=== PATIENT | female | born 1965 | race Caucasian/White ===

== ENCOUNTER 2022-03-28 10:24 | Emergency (ER) | payer BC, SELFPAY ==
[2022-03-28 10:57] VITALS: BP 136/70; PULSE 87; RESP 15; TEMP 36.6; O2SAT 98; BMI 26.5
--- NOTE | 2022-03-28 10:59 | DI.RAD.S_ITS ---
PROCEDURE: XR KNEE LT 3V INDICATIONS: knee pain 2 weeks TECHNIQUE: 3 views of the knee were acquired. COMPARISON: None. FINDINGS: Bones: No fractures or dislocations. No suspicious bony lesions. Mild arthritic narrowing within the medial and lateral compartment. Soft tissues: Moderate joint effusion. No suspicious soft tissue calcifications. IMPRESSION: Moderate effusion. Occult in Dictated by: Daisy Bird M.D. on 03/28/2022 at 11:40 Approved by: Daisy Bird M.D. on 03/28/2022 at 11:42
--- NOTE | 2022-03-28 12:12 | ED_ITS ---
HPI - Extremity Problem <Marcin Garrett PA-C - Last Filed: 03/28/22 13:50> General Chief complaint: Extremity Problem,Nontraumatic Stated complaint: Lt knee injury Time Seen by Provider: 03/28/22 12:06 Source: patient Mode of arrival: Ambulatory History of Present Illness HPI Narrative: Is a 56-year-old female presents to the emergency department complaining of left knee pain. Patient states that about a week ago she was kneeling on her left knee and after standing she noticed significant pain. Patient states that pain is primarily to the front of her knee or but with some pain posteriorly as well. She also states at times it feels numb when she keeps her legs in certain positions. Denies any significant trauma other than kneeling to the knee. Related Data Home Medications Medication Instructions Recorded Confirmed cetirizine 10 mg tablet 10 mg PO QDAY ##0 04/14/16 valacyclovir 500 mg tablet 500 mg PO TID ##0 04/14/16 Previous Rx's Medication Instructions Recorded codeine 10 mg-guaifenesin 100 mg/5 5 ml PO QHSP PRN #120 mL 04/14/16 mL oral liquid (Cheratussin AC) Allergies Allergy/AdvReac Type Severity Reaction Status Date / Time hydrocodone [From VICODIN] Allergy Unknown CLAMMY Verified 03/28/22 10:57 Review of Systems <Marcin Garrett PA-C - Last Filed: 03/28/22 13:50> Review of Systems Narrative: GENERAL: Denies chills, fatigue, malaise, fever, sweats. HEENT: Denies sinus pain, ear pain, sore throat, difficulty swallowing, dizziness. RESPIRATORY: Denies dyspnea, cough, wheezing, hemoptysis, sputum. CARDIOVASCULAR: Denies chest pain, palpitations, orthopnea, edema, GASTROINTESTINAL: Denies nausea, vomiting, abdominal pain, diarrhea, constipation, melena. : Denies dysuria, frequency, incontinence, hematuria, urinary retention. MUSCULOSKELETAL: Reports left knee pain SKIN: Denies rash, skin lesions, or other NEUROLOGIC: Denies weakness, headache, , change in speech, confusion, seizures, incoordination. PSYCHIATRIC: No concerning psychosocial issues. 12 point review of systems is negative except for those stated above Patient History <Marcin Garrett PA-C - Last Filed: 03/28/22 13:50> Social History Smoking Status: Unknown if ever smoked Smoking Status: Unknown if ever smoked alcohol intake frequency: holidays/special occasions only Substance Use Type: does not use Exam <Marcin Garrett PA-C - Last Filed: 03/28/22 13:50> Narrative Exam Narrative: GENERAL: Well-developed patient, in mild distress. HEAD: Atraumatic. Normocephalic. EYES: Pupils equal round and reactive. Extraocular motions intact. No scleral icterus. No injection or drainage. ENT: Nose without bleeding, purulent drainage. Throat without erythema, tonsillar hypertrophy or exudate. Airway patent. NECK: Trachea midline. Non tender CARDIOVASCULAR: Regular rate and rhythm without murmurs, gallops, or rubs. RESPIRATORY: Clear to auscultation. Breath sounds equal bilaterally. No wheezes, rales, or rhonchi. GASTROINTESTINAL: Abdomen soft, non-tender, nondistended. EXTREMITIES: Some pain with palpation to the anterior knee. No joint laxity felt. Negative anterior and posterior drawer test. Very mild pain with varus movement. Neurovascularly intact throughout. No palpable course of the posterior knee and no obvious deformities felt. BACK: Nontender without deformity or crepitance. No flank tenderness. NEURO: AOx3. SKIN: No rash or erythema of visible areas Initial Vital Signs Initial Vital Signs: Vital Signs Temperature 97.9 F 03/28/22 10:57 Pulse Rate 87 03/28/22 10:57 Respiratory Rate 15 03/28/22 10:57 Blood Pressure 136/70 03/28/22 10:57 Pulse Oximetry 98 03/28/22 10:57 Oxygen Delivery Method 03/28/22 10:57 <Yeny Cortez DO - Last Filed: 03/29/22 08:16> Initial Vital Signs Initial Vital Signs: Vital Signs Temperature 97.9 F 03/28/22 10:57 Pulse Rate 87 03/28/22 10:57 Respiratory Rate 15 03/28/22 10:57 Blood Pressure 136/70 03/28/22 10:57 Pulse Oximetry 98 03/28/22 10:57 Oxygen Delivery Method 03/28/22 10:57 Course <Marcin Garrett PA-C - Last Filed: 03/28/22 13:50> Orders Ordered: ED Orders 03/28/22 10:59 XR knee LT 3V Stat Vital Signs Vital signs: Vital Signs - 8 hr 03/28/22 10:57 Temperature 97.9 F Pulse Rate 87 Respiratory Rate 15 Blood Pressure 136/70 Pulse Oximetry 98 Oxygen Delivery Method Room Air <Yeny Cortez DO - Last Filed: 03/29/22 08:16> Orders Ordered: ED Orders 03/28/22 10:59 XR knee LT 3V Stat Vital Signs Vital signs: Vital Signs - 8 hr 03/28/22 10:57 Temperature 97.9 F Pulse Rate 87 Respiratory Rate 15 Blood Pressure 136/70 Pulse Oximetry 98 Oxygen Delivery Method Room Air MDM - Extremity (Nontraumatic) <Marcin Garrett PA-C - Last Filed: 03/28/22 13:50> Imaging Data Extremity x-ray #1: Radiologist's Impression: [address] [address] XRay Report Addendum Patient: Olivia Yanez MR#: [id number] : 1965 Acct:[id number] Age/Sex: 56 / F Date of Service: 03/28/22 Loc: ED Accession Number: [id number] ?? Procedure: XR knee LT 3V Ordering Provider: Yeny Cortez D.O. ADDENDUMThis report includes an Addendum and supersedes previous reports for this exam. ? ? ? PROCEDURE:? XR KNEE LT 3V ? INDICATIONS:? knee pain 2 weeks ? TECHNIQUE:? 3 views of the knee were acquired.? ? COMPARISON:? None. ? FINDINGS:? ? Bones:? No fractures or dislocations.? No suspicious bony lesions.? Mild arthritic narrowing within the medial and lateral compartment. ? Soft tissues:? Moderate joint effusion.? No suspicious soft tissue calcifications.? ? ? IMPRESSION:? Moderate effusion.? Occult in ? ? Dictated by: Daisy Bird M.D. on 03/28/2022 at 11:40 ? ? Approved by: Daisy Bird M.D. on 03/28/2022 at 11:42 ? ? ? ADDENDUM: Impression should read as follows: ? Moderate effusion.? No visualized acute fracture or dislocation. However, if clinical concern and/or pain persist, short interval imaging followup in 7-10 days is recommended, as occult injury cannot be definitively excluded. ? Dictated by: Daisy Bird M.D. on 03/28/2022 at 13:39 ? ? Approved by: Daisy Bird M.D. on 03/28/2022 at 13:40 ? Addendum Dictated By: Daisy Bird MD Addendum Signed By: Addendum Cosigned By: DD/ TD/TT: 03/28/22 PROCEDURE:? XR KNEE LT 3V ? INDICATIONS:? knee pain 2 weeks ? TECHNIQUE:? 3 views of the knee were acquired.? ? COMPARISON:? None. ? FINDINGS:? ? Bones:? No fractures or dislocations.? No suspicious bony lesions.? Mild arthritic narrowing within the medial and lateral compartment. ? Soft tissues:? Moderate joint effusion.? No suspicious soft tissue calcifications.? ? ? IMPRESSION:? Moderate effusion.? Occult in ? ? Dictated by: Daisy Bird M.D. on 03/28/2022 at 11:40 ? ? Approved by: Daisy Bird M.D. on 03/28/2022 at 11:42 ? MDM Narrative Medical decision making narrative: This is a 56-year-old female presenting to the emergency department complaining of left knee pain. Left knee x-ray ordered which showed moderate effusion but no significant fractures. Patient was neurovascularly intact throughout. Hunter jarengregory was stating that she came to the emergency department for an MRI as her insurance is from [place] and will only cover cover emergency care here in [place]. Discussed risks versus benefits of MRI due to suspected possible very mild meniscal or ligamentous injury. Recommended a knee immobilizer and crutches for the patient to be nonweightbearing until pain improves. Recommended ice, ibuprofen, and heat. Patient seemed agreeable to the plan. Recommend she follow up with her primary care provider when available. Calves were not significantly larger on 1 side. And low suspicion for DVT. Discharge Plan Departure Patient Disposition: Home Clinical Impression: Effusion of knee Instructions: How To Perform RICE (Rest, Ice, Compress, Elevate) Activity Restrictions/Additional Instructions: Thank you for coming to the [facility] Emergency Department today. As we discussed there is no fracture in your knee. There was some effusion which is an increase in fluid around the knee due to some kind of injury. This is not to be concerned usually dissipates on its own. I recommended he use the knee immobilizer and crutches as much as possible to keep the knee from bending and worsening the injury or pain. Please continue use ibuprofen, ice, and rest until the pain improves. I hope you feel better soon. Prescriptions: No Action cetirizine 10 MG tablet 10 mg PO QDAY Qty: 0 valacyclovir 500 MG tablet 500 mg PO TID Qty: 0 codeine-guaifenesin [Cheratussin AC] 118 ML liquid 5 ml PO QHSP PRNQty: 120 0RF Referrals: Vanessa Cash MD [Physician] - (Pt requesting ortho referral to f/u on L knee injury. XR negative for fx. No PCP ) Visit Report Forms: Patient Portal/API <Yeny Cortez DO - Last Filed: 03/29/22 08:16> Cosign ED Attending Tejasature Attestation: I was immediately available in the department for consultation. Documentation has been reviewed.
== END 2022-03-28 13:55 | disposition home or self-care (01) ==
PROVIDERS: Emergency Provider Physician Assistant Medical
DX: M25.462 Effusion, left knee (principal)
CPT/HCPCS: 73562; 99283

== ENCOUNTER → 2024-12-10 07:00 | Outpatient (CLI) | payer BC, SELFPAY ==
[2024-12-10 07:52] LABS: Hemoglobin A1C% w Est Avg Glu 5.7 % (4.0-6.0)
[2024-12-10 08:05] LABS: HEMOLYSIS < 15 (0-50); Iron 114 ug/dL (37-170)
[2024-12-10 08:09] LABS: Alanine Aminotransferase 22 IU/L (<35); Albumin 4.4 g/dL (3.5-5.0); Albumin Globulin Ratio 1.6 (1.0-2.8); Alkaline Phosphatase 77 U/L (38-126); Blood Urea Nitrogen 13 mg/dL (7-17); Calcium 9.4 mg/dL (8.4-10.2); Carbon Dioxide 26 mmol/L (22-32); Chloride 107 mmol/L (98-107); Cholesterol 198 mg/dL (140-199); Estimated Glomerular Filt Rate > 60 mL/min (>60); Globulin 2.7 g/dL (1.7-4.1); Glucose 99 mg/dL (70-99); HDL Cholesterol 79 mg/dL (40-60); HEMOLYSIS < 15 (0-50); Potassium 4.2 mmol/L (3.4-5.1); Sodium 140 mmol/L (137-145); Total Protein 7.1 g/dL (6.3-8.2); Triglycerides 64 mg/dL (35-150)
[2024-12-10 08:18] LABS: Percent Iron Saturation 40 % (15-50); Total Iron Binding Capacity 283 ug/dL (265-497); Transferrin 241 mg/dL (206-381)
[2024-12-10 08:42] LABS: Ferritin 39 ng/mL (11-264)
== END ==
PROVIDERS: PCP Family Medicine; Referring Provider Family Medicine; Visit Provider Family Medicine
DX: R74.8 Abnormal levels of other serum enzymes (principal); R73.03 Prediabetes; E78.00 Pure hypercholesterolemia, unspecified; L65.9 Nonscarring hair loss, unspecified
CPT/HCPCS: 36415; 80053; 80061; 82728; 83036; 83540; 83550